=== PATIENT | female | born 1975 | race Caucasian/White ===

== ENCOUNTER 2016-05-07 13:34 | Emergency (ER) | payer OTHER ==
[~2016-05-07] VITALS: Ht 157.5 cm; Wt 86.0 kg
[~2016-05-07 13:34] MED LIST: ALPR.25 PO; LEXA20TA PO; PENI500T PO
[2016-05-07 13:41] VITALS: BP 136/85; PULSE 75; RESP 16; TEMP 97.9; O2SAT 98
[2016-05-07] MEDS ORDERED: LEXA20TA PO (13:56)
[2016-05-07] MEDS ORDERED: ALPR0.5T3 PO (13:56)
[2016-05-07] MEDS ORDERED: KETOROLAC TROMETHAMINE 30 MG/ML (IVP) VIAL IV PUSH ONE (15:00)
[2016-05-07] MEDS ORDERED: SODIUM CHLOR 0.9% 1000 ML INJ 1,000 ML IV ONE (15:00)
[2016-05-07] MEDS ORDERED: diphenhydrAMINE HCL 50 MG/ML VIAL IV PUSH ONE (15:00)
[2016-05-07] MEDS ORDERED: PROCHLORPERAZINE INJ 10 MG/2 ML VIAL IV PUSH ONE (15:00)
[2016-05-07 15:29] VITALS: BP 119/54; PULSE 109; RESP 20; O2SAT 98
--- NOTE | 2016-05-07 15:45 | PD ---
HPI Chief Complaint: Headache Time Seen by Provider: 14:36 Travel History International Travel<30 days: No Contact w/Intl Traveler<30days: No Traveled to known affect area: No History of Present Illness HPI 40-year-old female complains of headache. Patient states that headache started this morning. Patient states the headache as sudden headache started in the front with radiation to the back the head. Patient states that she had nausea and photophobia with the headache. Patient denies any visual change. Patient denies any neck stiffness. Patient denies any chest pain or shortness of breath. Patient denies abdominal pain. Patient denies any focal weakness or numbness of the extremity. Patient denies any recent head injury. Patient has history migraine in the past. Patient states the headache today is more sudden onset and worse than previous migraine headache. Patient denies any fever chills. PFSH Past Medical History Anxiety: Yes Depression: Yes Kidney Stones: Yes Migraines: Yes ?: Not Ovarian Cysts: Yes Past Surgical History Cholecystectomy: Yes Genitourinary Surgery: Yes (LITHOTRIPSY) Gynecologic Surgery: Yes (OOPHRECTOMY LFT) Hysterectomy: Yes Other Surgery: Yes (DISLOCATED PATELLA 2011, ULNAR NERVE RELEASE 2000) Social History Alcohol Use: Yes (OCC) Tobacco Use: No Substance Use: No Allergies-Medications (Allergen,Severity, Reaction): Coded Allergies: No Known Allergies (Unverified , 05/07/16) Reported Meds & Prescriptions Reported Meds & Active Scripts Active Augmentin (Amoxicillin-Clavulanate) 875-125 mg Tab 875 Mg PO BID not for use in CrCl <30 ml/min. Zofran Odt (Ondansetron Odt) 4 Mg Tab 4 Mg SL Q6HR PRN Fioricet (Ltatsjvwgq-Ucbzreqerylze-Akqhzvmd) 50-300-40 Mg Cap 1-2 Cap PO Q6H PRN Reported Alprazolam 0.5 Mg Tab 0.5 Mg PO Q4H PRN Lexapro (Escitalopram Oxalate) 20 Mg Tab 20 Mg PO DAILY Review of Systems General / Constitutional: No: Fever Eyes: Positive: Photophobia, No: Visual changes HENT: Positive: Headaches Cardiovascular: No: Chest Pain or Discomfort Respiratory: No: Shortness of Breath Gastrointestinal: Positive: Nausea, No: Abdominal Pain Genitourinary: No: Dysuria Musculoskeletal: No: Pain Skin: No Rash Neurologic: No: Weakness Psychiatric: No: Depression Endocrine: No: Polydipsia Hematologic/Lymphatic: No: Easy Bruising Physical Exam Narrative GENERAL: Well-nourished, well-developed patient. SKIN: Focused skin assessment warm/dry. HEAD: Normocephalic. EYES: No scleral icterus. No injection or drainage. Pupils 3 mm equal reactive. Patient has photophobia. NECK: Supple, trachea midline. No JVD or lymphadenopathy. No meningismus CARDIOVASCULAR: Regular rate and rhythm without murmurs, gallops, or rubs. RESPIRATORY: Breath sounds equal bilaterally. No accessory muscle use. GASTROINTESTINAL: Abdomen soft, non-tender, nondistended. MUSCULOSKELETAL: No cyanosis, or edema. BACK: Nontender without obvious deformity. No CVA tenderness. Neurologic exam: Patient's awake and alert oriented 3. No obvious focal neurological deficit. Data Data Last Documented VS Vital Signs Date Time Temp Pulse Resp B/P Pulse Ox O2 Delivery O2 Flow Rate FiO2 05/07/16 15:29 109 20 119/54 98 05/07/16 13:41 97.9 Orders Sodium Chlor 0.9% 1000 Ml Inj (Ns 1000 M (05/07/16 15:00) Ketorolac Inj (Toradol Inj) (05/07/16 15:00) Prochlorperazine Inj (Compazine Inj) (05/07/16 15:00) Diphenhydramine Inj (Benadryl Inj) (05/07/16 15:00) Ct Brain W/O Iv Contrast(Rout) (05/07/16 15:36) MDM Medical Decision Making Medical Screen Exam Complete: Yes Emergency Medical Condition: Yes Interpretation(s) [address] scan of brain shows mild ethmoid sinusitis. Differential Diagnosis Differential diagnosis including migraine headache, tension headache, cluster headache, intracranial hemorrhage. Narrative Course 40-year-old female with headache, photophobia and nausea. History of migraine. Toradol 30 mg IV. Compazine 10 mg IV. Phenergan 50 mg IV. Normal saline solution 1 L IV bolus. Diagnosis Primary Impression: Cephalgia Qualified Code: R51 - Nonintractable episodic headache, unspecified headache type Additional Impression: Sinusitis Qualified Code: J01.20 - Acute non-recurrent ethmoidal sinusitis Additional Instructions: Take medications as directed. Follow-up with personal physician and neurologist. Return if worse. Med/Other Pt SpecificInfo: Prescription(s) given Scripts Amoxicillin-Clavulanate (Augmentin)875-125 mg [id number] Mg PO BID #20 TAB Ref 0 not for use in CrCl <30 ml/min. Prov:Gutierrez Handley MD 05/07/16 Ondansetron Odt (Zofran Odt)4 Mg Tab4 Mg SL Q6HR PRN (Nausea/Vomiting) #10 TAB Ref 0 Prov:Gutierrez Hnadley MD 05/07/16 Hwdywwnucj-Czmonrkpsuvdf-Tjwpmarw (Fioricet)50-300-40 Mg Cap1-2 Cap PO Q6H PRN ( HEADACHE) #30 CAP Ref 0 Prov:Gutierrez Handley MD 05/07/16 Disposition: 01 DISCHARGE HOME Condition: Stable Gutierrez Handley MD May 07, 2016 15:45
--- NOTE | 2016-05-07 16:19 | RADHPO ---
EXAM DATE/TIME: 05/07/2016 15:58 [facility] COMPARISON: No previous studies available for comparison. INDICATIONS : Cephalgia. Nausea. RADIATION DOSE: 61.53 CTDIvol (mGy) MEDICAL HISTORY : None SURGICAL HISTORY : None. ENCOUNTER: Initial ACUITY: 1 day PAIN SCALE: 8/10 LOCATION: cranial TECHNIQUE: Multiple contiguous axial images were obtained of the head. Using automated exposure control and adj ustment of the mA and/or kV according to patient size, radiation dose was kept as low as reasonably a chievable to obtain optimal diagnostic quality images. FINDINGS: CEREBRUM: The ventricles are normal for age. No evidence of midline shift, mass lesion, hemorrhage or acute in farction. No extra-axial fluid collections are seen. POSTERIOR FOSSA: The cerebellum and brainstem are intact. The 4th ventricle is midline. The cerebellopontine angle i s unremarkable. EXTRACRANIAL: Mild partial opacification of the right-sided ethmoid sinus. SKULL: The calvaria is intact. No evidence of skull fracture. CONCLUSION: Mild right ethmoid sinus. No acute intracranial findings. Joel Krishna MD on May 07, 2016 at 16:14 Board Certified Radiologist. This report was verified electronically.
[2016-05-07] MEDS ORDERED: BUTA1CAP PO (16:22)
[2016-05-07] MEDS ORDERED: AUGM875T PO (16:22)
[2016-05-07] MEDS ORDERED: ZOFR4TAB3 SL (16:22)
== END 2016-05-07 16:34 | disposition home or self-care (01) ==
LOC: PHED 13:34
DX: R51 Headache (principal); J01.20 Acute ethmoidal sinusitis, unspecified
CPT/HCPCS: 70450; 96374; 96375; 99284; J0780; J1200; J1885; J7030

== ENCOUNTER 2016-05-24 17:55 | Emergency (ER) | payer OTHER ==
[~2016-05-24] VITALS: Ht 157.5 cm; Wt 84.0 kg
[~2016-05-24 17:55] MED LIST changes: -ALPR.25 PO; +ALPR0.5T3 PO; +AUGM875T PO; +BUTA1CAP PO; -PENI500T PO; +ZOFR4TAB3 SL
[2016-05-24 18:04] VITALS: BP 155/79; PULSE 85; RESP 18; TEMP 98; O2SAT 98
[2016-05-24] MEDS ORDERED: IMIT50TA PO (18:04)
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
[2016-05-24] MEDS ORDERED: IBUP800T23 PO (18:24)
[2016-05-24] MEDS ORDERED: HYDR-3533 PO (18:24)
[2016-05-24] MEDS ORDERED: SILV1CRE20 TOPICAL (18:24)
[2016-05-24] MEDS ORDERED: IBUPROFEN 800 MG TAB PO ONE (18:30)
[2016-05-24] MEDS ORDERED: SILVER SULFADIAZINE 1% CR 50 GM JAR TOPICAL ONE (18:30)
== END 2016-05-24 18:48 | disposition home or self-care (01) ==
LOC: PHEFT 17:55
DX: T21.22XA Burn of second degree of abdominal wall, initial encounter (principal); T31.0 Burns involving less than 10% of body surface; Z87.442 Personal history of urinary calculi; X12.XXXA Contact with other hot fluids, initial encounter; Y93.G3 Activity, cooking and baking; Y92.000 Kitchen of unspecified non-institutional (private) residence as the place of occurrence of the external cause; Y99.8 Other external cause status
CPT/HCPCS: 99283

== ENCOUNTER 2017-07-06 10:48 | Emergency (ER) | payer OTHER ==
[~2017-07-06] VITALS: Ht 157.5 cm; Wt 87.0 kg
[~2017-07-06 10:48] MED LIST changes: -AUGM875T PO; +HYDR-3533 PO; +IBUP1TAB7 PO; +IMIT50TA PO; +SILV1CRE20 TOPICAL; -ZOFR4TAB3 SL
[2017-07-06 10:55] VITALS: BP 159/91; PULSE 72; RESP 18; TEMP 97.9; O2SAT 98
--- NOTE | 2017-07-06 11:12 | PD ---
HPI Chief Complaint: Headache Time Seen by Provider: 11:02 Travel History International Travel<30 days: No Contact w/Intl Traveler<30days: No Traveled to known affect area: No History of Present Illness HPI This 41-year-old female is complaining of headache. She has been having a diffuse throbbing headache since yesterday. She has a history of migraine headaches. She has had nausea and vomiting. She does not have any numbness or tingling. In the past Fioricet has been helpful for her but she has been unable to get it recently. She took some ibuprofen this morning but vomited soon after. She has had persistent vomiting. She is not aware of fever. PFSH Past Medical History Anxiety: Yes Depression: Yes Diminished Hearing: No Kidney Stones: Yes Immunizations Current: Yes Migraines: Yes Influenza Vaccination: No ?: Not Ovarian Cysts: Yes Past Surgical History Cholecystectomy: Yes Genitourinary Surgery: Yes (LITHOTRIPSY) Gynecologic Surgery: Yes (OOPHRECTOMY LFT) Hysterectomy: Yes Other Surgery: Yes (DISLOCATED PATELLA 2011, ULNAR NERVE RELEASE 2000) Social History Alcohol Use: Yes (OCC) Tobacco Use: No Substance Use: No Allergies-Medications (Allergen,Severity, Reaction): Coded Allergies: No Known Allergies (Verified Adverse Reaction, Unknown, 07/06/17) Reported Meds & Prescriptions Reported Meds & Active Scripts Active Fioricet (Vllnboncdy-Btwptrksexjga-Likyfwih) 50-300-40 Mg Cap 1-2 Cap PO Q6H PRN Reported Alprazolam 0.5 Mg Tab 0.5 Mg PO Q4H PRN Lexapro (Escitalopram Oxalate) 20 Mg Tab 20 Mg PO DAILY Review of Systems General / Constitutional: No: Fever, Chills Eyes: No: Diploplia, Blurred Vision HENT: Positive: Headaches Cardiovascular: No: Chest Pain or Discomfort, Palpitations Respiratory: No: Cough, Shortness of Breath Gastrointestinal: Positive: Nausea, Vomiting Genitourinary: No: Urgency, Frequency Musculoskeletal: No: Myalgias Skin: No Rash Neurologic: Positive: Headache, No: Syncope, Change in Mentation Psychiatric: No: Anxiety, Depression Hematologic/Lymphatic: No: Easy Bruising Physical Exam Narrative GENERAL: Well-developed female SKIN: Focused skin assessment warm/dry. HEAD: Atraumatic. Normocephalic. EYES: Pupils equal and round. No scleral icterus. No injection or drainage. ENT: No nasal bleeding or discharge. Mucous membranes pink and moist. NECK: Trachea midline. No JVD. CARDIOVASCULAR: Regular rate and rhythm. No murmur appreciated. RESPIRATORY: No accessory muscle use. Clear to auscultation. Breath sounds equal bilaterally. GASTROINTESTINAL: Abdomen soft, non-tender, nondistended. Hepatic and splenic margins not palpable. MUSCULOSKELETAL: No obvious deformities. No clubbing. No cyanosis. No edema. NEUROLOGICAL: Awake and alert. No obvious cranial nerve deficits. Motor grossly within normal limits. Normal speech. PSYCHIATRIC: Appropriate mood and affect; insight and judgment normal. Data Data Last Documented VS Vital Signs Date Time Temp Pulse Resp B/P (MAP) Pulse Ox O2 Delivery O2 Flow Rate FiO2 07/06/17 10:55 97.9 72 18 159/91 (113) 98 Orders Orders Complete Blood Count With Diff (07/06/17 11:07) Basic Metabolic Panel (Bmp) (07/06/17 11:07) Sodium Chlor 0.9% 1000 Ml Inj (Ns 1000 M (07/06/17 11:15) Prochlorperazine Inj (Compazine Inj) (07/06/17 11:15) Ketorolac Inj (Toradol Inj) (07/06/17 11:15) Diphenhydramine Inj (Benadryl Inj) (07/06/17 12:15) Labs Laboratory Tests Test 07/06/17 11:30 White Blood Count 9.5 TH/MM3 Red Blood Count 4.28 MIL/MM3 Hemoglobin 12.6 GM/DL Hematocrit 37.3 % Mean Corpuscular Volume 87.0 FL Mean Corpuscular Hemoglobin 29.4 PG Mean Corpuscular Hemoglobin Concent 33.8 % Red Cell Distribution Width 12.5 % Platelet Count 190 TH/MM3 Mean Platelet Volume 7.7 FL Neutrophils (%) (Auto) 83.7 % Lymphocytes (%) (Auto) 11.6 % Monocytes (%) (Auto) 3.1 % Eosinophils (%) (Auto) 0.6 % Basophils (%) (Auto) 1.0 % Neutrophils # (Auto) 7.9 TH/MM3 Lymphocytes # (Auto) 1.1 TH/MM3 Monocytes # (Auto) 0.3 TH/MM3 Eosinophils # (Auto) 0.1 TH/MM3 Basophils # (Auto) 0.1 TH/MM3 CBC Comment DIFF FINAL Differential Comment Blood Urea Nitrogen 15 MG/DL Creatinine 0.58 MG/DL Random Glucose 119 MG/DL Calcium Level 8.6 MG/DL Sodium Level 139 MEQ/L Potassium Level 4.1 MEQ/L Chloride Level 108 MEQ/L Carbon Dioxide Level 24.7 MEQ/L Anion Gap 6 MEQ/L Estimat Glomerular Filtration Rate 115 ML/MIN MDM Medical Decision Making Medical Screen Exam Complete: Yes Emergency Medical Condition: Yes Medical Record Reviewed: Yes Differential Diagnosis Differential includes migraine headache, tension headache Narrative Course Patient has history of migraines and this is typical of a migraine headache. She has been given intravenous Compazine and Toradol and reports much improvement in the headache. She is complaining of feeling restless and jittery which I believe represents akathisia from the Compazine. She will be given Benadryl and she will be released. Diagnosis Primary Impression: Migraine headache Scripts Qsfqhonhcc-Xqawdzqgmungc-Vcvuvpgk (Fioricet) 50-300-40 Mg Cap 1 CAP PO Q4H Y for HEADACHE, #30 CAP 0 Refills Prov: Cody Maxwell MD 07/06/17 Disposition: DISCHARGE HOME Condition: Stable Cody Maxwell MD July 06, 2017 11:11
[2017-07-06] MEDS ORDERED: SODIUM CHLOR 0.9% 1000 ML INJ 1,000 ML IV ONE (11:15)
[2017-07-06] MEDS ORDERED: KETOROLAC TROMETHAMINE 30 MG/ML (IVP) VIAL IV PUSH ONE (11:15)
[2017-07-06] MEDS ORDERED: PROCHLORPERAZINE INJ 10 MG/2 ML VIAL IV PUSH ONE (11:15)
[2017-07-06 11:38] LABS: AUTOMATED NEUTROPHIL # 7.9 TH/MM3 (1.8-7.7); BASOPHIL # 0.1 TH/MM3 (0-0.2); EOSINOPHIL # 0.1 TH/MM3 (0-0.4); EOSINOPHIL % 0.6 % (0.0-4.0); HEMATOCRIT 37.3 % (35.0-46.0); HEMOGLOBIN 12.6 GM/DL (11.6-15.3); LYMPH % 11.6 % (9.0-44.0); LYMPHOCYTE # 1.1 TH/MM3 (1.0-4.8); MEAN CORPUSCULAR HEMOGLOBIN 29.4 PG (27.0-34.0); MEAN CORPUSCULAR HGB CONC 33.8 % (32.0-36.0); MEAN PLATELET VOLUME 7.7 FL (7.0-11.0); MONO % 3.1 % (0.0-8.0); MONOCYTE # 0.3 TH/MM3 (0-0.9); NEUT % 83.7 % (16.0-70.0); PLATELET COUNT 190 TH/MM3 (150-450); RED BLOOD COUNT 4.28 MIL/MM3 (4.00-5.30); RED CELL DISTRIBUTION WIDTH 12.5 % (11.6-17.2); WHITE BLOOD COUNT 9.5 TH/MM3 (4.0-11.0)
[2017-07-06 11:48] LABS: CALCIUM 8.6 MG/DL (8.5-10.1)
[2017-07-06 11:49] LABS: BICARBONATE 24.7 MEQ/L (21.0-32.0)
[2017-07-06 11:52] LABS: CREATININE 0.58 MG/DL (0.50-1.00)
[2017-07-06] MEDS ORDERED: BUTA1CAP PO (12:05)
[2017-07-06 12:13] VITALS: BP 118/72; PULSE 69; RESP 16; O2SAT 99
[2017-07-06] MEDS ORDERED: diphenhydrAMINE HCL 50 MG/ML VIAL IV PUSH ONE (12:15)
[2017-07-06 12:35] VITALS: BP 125/81; PULSE 76; RESP 16; O2SAT 100
== END 2017-07-06 12:50 | disposition home or self-care (01) ==
LOC: PHED 10:48
DX: G43.909 Migraine, unspecified, not intractable, without status migrainosus (principal); G25.71 Drug induced akathisia; R11.2 Nausea with vomiting, unspecified; F41.9 Anxiety disorder, unspecified; F32.9 Major depressive disorder, single episode, unspecified; Z87.442 Personal history of urinary calculi; Z79.899 Other long term (current) drug therapy
CPT/HCPCS: 80048; 85025; 96361; 96374; 96375; 99284; J0780; J1200; J1885; J7030

== ENCOUNTER 2017-07-08 10:58 | Emergency (ER) | payer OTHER ==
[~2017-07-08] VITALS: Ht 157.5 cm; Wt 87.0 kg
[~2017-07-08 10:58] MED LIST changes: -HYDR-3533 PO; -IBUP1TAB7 PO; -IMIT50TA PO; -SILV1CRE20 TOPICAL
[2017-07-08 11:05] VITALS: BP 103/75; PULSE 78; RESP 18; TEMP 97.5; O2SAT 98
--- NOTE | 2017-07-08 11:18 | PD ---
HPI Chief Complaint: Headache Time Seen by Provider: 11:16 Travel History International Travel<30 days: No Contact w/Intl Traveler<30days: No Traveled to known affect area: No History of Present Illness HPI Patient comes in complaining of 1 hour period of migraine, she tried to take her home migraine medications which did not seem to help. So she is here for breakthrough pain control. Patient states that she has a neurologist, and she had a CAT scan in 2017 of her head which was negative. Patient states that his headaches are associated with nausea and vomiting but without diarrhea. Patient denies any alleviating or aggravating factors. Patient denies any associated factors such as fever, rash, neck pain, chest pain, back pain, flank pain or abdominal pain. States no known drug allergy Past medical history significant for cholecystectomy, ovarian cyst, hysterectomy , kidney stones, depression, anxiety, migraine history. PFSH Past Medical History Anxiety: Yes Depression: Yes Diminished Hearing: No Kidney Stones: Yes Immunizations Current: Yes Migraines: Yes Ovarian Cysts: Yes Past Surgical History Cholecystectomy: Yes Genitourinary Surgery: Yes (LITHOTRIPSY) Gynecologic Surgery: Yes (OOPHRECTOMY LFT) Hysterectomy: Yes Other Surgery: Yes (DISLOCATED PATELLA 2011, ULNAR NERVE RELEASE 2000) Social History Alcohol Use: Yes (OCC) Tobacco Use: No Substance Use: No Allergies-Medications (Allergen,Severity, Reaction): Coded Allergies: No Known Allergies (Verified Adverse Reaction, Unknown, 07/08/17) Reported Meds & Prescriptions Reported Meds & Active Scripts Active Fioricet (Xxfmoileoz-Auomuoblnnqnl-Fbviakbc) 50-300-40 Mg Cap 1-2 Cap PO Q6H PRN Reported Alprazolam 0.5 Mg Tab 0.5 Mg PO Q4H PRN Lexapro (Escitalopram Oxalate) 20 Mg Tab 30 Mg PO DAILY Review of Systems General / Constitutional: No: Fever Eyes: No: Visual changes HENT: Positive: Headaches Cardiovascular: No: Chest Pain or Discomfort Respiratory: No: Shortness of Breath Gastrointestinal: Positive: Nausea, No: Abdominal Pain Genitourinary: No: Dysuria Musculoskeletal: No: Pain Skin: No Rash Neurologic: No: Weakness Psychiatric: No: Depression Endocrine: No: Polydipsia Hematologic/Lymphatic: No: Easy Bruising Physical Exam Narrative GENERAL: Afebrile SKIN: Warm and dry. No rash HEAD: Atraumatic. Normocephalic. EYES: Pupils equal and round. No scleral icterus. No injection or drainage. Mild photophobia ENT: No nasal bleeding or discharge. Mucous membranes pink and moist. NECK: Trachea midline. No JVD. No nuchal rigidity, negative Brudzinski's and Kernig sign CARDIOVASCULAR: Regular rate and rhythm. RESPIRATORY: No accessory muscle use. Clear to auscultation. Breath sounds equal bilaterally. GASTROINTESTINAL: Abdomen soft, non-tender, nondistended. MUSCULOSKELETAL: Extremities without clubbing, cyanosis, or edema. No obvious deformities. NEUROLOGICAL: Awake and alert. No obvious cranial nerve deficits. Motor grossly within normal limits. Five out of 5 muscle strength in the arms and legs. Normal speech. PSYCHIATRIC: Appropriate mood and affect; insight and judgment normal. Data Data Last Documented VS Vital Signs Date Time Temp Pulse Resp B/P (MAP) Pulse Ox O2 Delivery O2 Flow Rate FiO2 07/08/17 11:30 99 Room Air 07/08/17 11:05 97.5 78 18 103/75 (84) Orders Orders Ecg Monitoring (07/08/17 11:18) Iv Access Insert/Monitor (07/08/17 11:18) Oximetry (07/08/17 11:18) Oxygen Administration (07/08/17 11:18) Sodium Chloride 0.9% Flush (Ns Flush) (07/08/17 11:30) Ketorolac Inj (Toradol Inj) (07/08/17 11:30) Prochlorperazine Inj (Compazine Inj) (07/08/17 11:30) Diphenhydramine Inj (Benadryl Inj) (07/08/17 11:30) MDM Medical Decision Making Medical Screen Exam Complete: Yes Emergency Medical Condition: Yes Medical Record Reviewed: Yes Differential Diagnosis Migraine headache Narrative Course Patient was seen on 06 July for the same, was treated with Toradol Compazine and Benadryl and discharged home on Fioricet. No additional pain medication will be given as the patient was given 30 tablets of Fioricet the last time she was seen here 2 days ago. Patient had resolution of headache after provided with the above cocktail of Toradol, Compazine and Benadryl. Diagnosis Primary Impression: Cephalgia Qualified Codes: R51 - Headache Patient Instructions: Acute Headache (ED), General Instructions Scripts Ondansetron Odt (Zofran Odt) 4 Mg Tab 4 MG SL Q6HR Y for Nausea/Vomiting, #20 TAB 0 Refills Prov: Mejia Lehman MD 07/08/17 Disposition: 01 DISCHARGE HOME Condition: Stable Mejia Lehman MD July 08, 2017 11:18
[2017-07-08] MEDS ORDERED: SODIUM CHLORIDE 0.9% FLUSH 10 ML FLUSH IVF PRN (11:30)
[2017-07-08] MEDS ORDERED: PROCHLORPERAZINE INJ 10 MG/2 ML VIAL IVP ONE (11:30)
[2017-07-08] MEDS ORDERED: KETOROLAC TROMETHAMINE 30 MG/ML (IVP) VIAL IVP ONE (11:30)
[2017-07-08] MEDS ORDERED: diphenhydrAMINE HCL 50 MG/ML VIAL IVP ONE (11:30)
[2017-07-08] MEDS ORDERED: ZOFR4TAB3 SL (12:03)
[2017-07-08 12:04] VITALS: BP 134/87; PULSE 86; RESP 16; O2SAT 99
== END 2017-07-08 12:26 | disposition home or self-care (01) ==
LOC: PHED 10:58
DX: R51 Headache (principal); F32.9 Major depressive disorder, single episode, unspecified; F41.9 Anxiety disorder, unspecified
CPT/HCPCS: 96374; 96375; 99284; J0780; J1200; J1885

== ENCOUNTER 2017-07-11 22:16 | Emergency (ER) | payer OTHER ==
[~2017-07-11] VITALS: Ht 157.5 cm; Wt 86.0 kg
[~2017-07-11 22:16] MED LIST changes: +ZOFR4TAB3 SL
[2017-07-11 22:20] VITALS: BP 130/77; PULSE 96; RESP 18; TEMP 98.4; O2SAT 97
[2017-07-11 22:37] VITALS: BP 153/91; PULSE 85; RESP 18; O2SAT 97
[2017-07-11] MEDS ORDERED: PROM25TA10 PO (22:43)
[2017-07-11] MEDS ORDERED: SODIUM CHLOR 0.9% 1000 ML INJ 1,000 ML IV ONE (23:17)
[2017-07-11] MEDS ORDERED: PROCHLORPERAZINE INJ 10 MG/2 ML VIAL IVP ONE (23:30)
[2017-07-11] MEDS ORDERED: diphenhydrAMINE HCL 50 MG/ML VIAL IVP ONE (23:30)
[2017-07-11 23:45] VITALS: BP 113/67; PULSE 88; RESP 18; O2SAT 98
--- NOTE | 2017-07-11 23:55 | PD ---
HPI Chief Complaint: Headache Time Seen by Provider: 23:17 Travel History International Travel<30 days: No Contact w/Intl Traveler<30days: No Traveled to known affect area: No History of Present Illness HPI 41-year-old female with history of migraine presents to the emergency department with headache 5 days. This is her third visit to the emergency department. Patient states headache is persistent and unremitting. Patient states headache is associated with pain to the right posterior neck right tenriism intermittently she feels tingling and weakness in her right upper extremity and right lower extremity. Patient also has her typical photophobia, phonophobia, and nausea. Patient states she was seen 07/06/17 and 07/08/17 for same but did not have any imaging studies or lab work performed and was administered medication with good symptom relief and discharged. However upon resolution of medication affect symptoms have returned. No reported neck or head manipulation or injury. No recent febrile illness. No speech disturbance no visual loss and no change in mentation or ataxia. Patient rates her pain 7/ 10 in intensity. No known exacerbating or relieving factors (except medications provided at the prior the ED visits). PFSH Past Medical History Anxiety: Yes Depression: Yes Diminished Hearing: No Kidney Stones: Yes Immunizations Current: Yes Migraines: Yes Influenza Vaccination: No ?: Not Ovarian Cysts: Yes Past Surgical History Cholecystectomy: Yes Genitourinary Surgery: Yes (LITHOTRIPSY) Gynecologic Surgery: Yes (OOPHRECTOMY LFT) Hysterectomy: Yes Other Surgery: Yes (DISLOCATED PATELLA 2011, ULNAR NERVE RELEASE 2000) Social History Alcohol Use: Yes (OCC) Tobacco Use: No Substance Use: No Allergies-Medications (Allergen,Severity, Reaction): Coded Allergies: No Known Allergies (Verified Adverse Reaction, Unknown, 07/11/17) Reported Meds & Prescriptions Reported Meds & Active Scripts Active Zofran Odt (Ondansetron Odt) 4 Mg Tab 4 Mg SL Q6HR PRN Fioricet (Cirpdojevj-Gxjgejoqlrlmg-Mjhxwjjt) 50-300-40 Mg Cap 1-2 Cap PO Q6H PRN Reported Phenergan (Promethazine HCl) 25 Mg Tablet 25 Mg PO ONCE Alprazolam 0.5 Mg Tab 0.5 Mg PO Q4H PRN Lexapro (Escitalopram Oxalate) 20 Mg Tab 30 Mg PO DAILY Physical Exam Narrative GENERAL: Well-developed well-nourished female no acute distress no respiratory distress; GCS 15 SKIN: Warm and dry. HEAD: Atraumatic. Normocephalic. EYES: Pupils equal and round and reactive to light. Extraocular muscles intact. No scleral icterus. No injection or drainage. No papilledema by funduscopic exam. ENT: No nasal bleeding or discharge. Mucous membranes pink and moist. Airway is patent. NECK: Trachea midline. No JVD. Supple no meningismus. CARDIOVASCULAR: Regular rate and rhythm. RESPIRATORY: No accessory muscle use. Clear to auscultation. Breath sounds equal bilaterally. GASTROINTESTINAL: Abdomen soft, non-tender, nondistended. Hepatic and splenic margins not palpable. MUSCULOSKELETAL: Extremities without clubbing, cyanosis, or edema. No obvious deformities. NEUROLOGICAL: Awake and alert. GCS 15 no obvious cranial nerve deficits. Motor grossly within normal limits. Five out of 5 muscle strength in the arms and legs. No limb ataxia. No pronator drift. Normal speech. PSYCHIATRIC: Appropriate mood and affect; insight and judgment normal. Data Data Last Documented VS Vital Signs Date Time Temp Pulse Resp B/P (MAP) Pulse Ox O2 Delivery O2 Flow Rate FiO2 07/12/17 02:16 84 16 107/70 (82) 98 Room Air 07/11/17 22:20 98.4 Orders Orders Complete Blood Count With Diff (07/11/17 23:17) Basic Metabolic Panel (Bmp) (07/11/17 23:17) Westergren Sedimentation Rate (07/11/17 23:17) Prothrombin Time / Inr (Pt) (07/11/17 23:17) Act Partial Throm Time (Ptt) (07/11/17 23:17) Ecg Monitoring (07/11/17 23:17) Iv Access Insert/Monitor (07/11/17 23:17) Oximetry (07/11/17 23:17) Sodium Chloride 0.9% Flush (Ns Flush) (07/11/17 23:30) Prochlorperazine Inj (Compazine Inj) (07/11/17 23:30) Diphenhydramine Inj (Benadryl Inj) (07/11/17 23:30) Sodium Chlor 0.9% 1000 Ml Inj (Ns 1000 M (07/11/17 23:17) Ed Urine Pregnancytest Poc (07/11/17 23:17) Diphenhydramine Inj (Benadryl Inj) (07/12/17 00:45) Ct Brain W/O Iv Contrast(Rout) (07/12/17 23:17) Ketorolac Inj (Toradol Inj) (07/12/17 02:15) Labs Laboratory Tests Test 07/12/17 00:00 White Blood Count 7.4 TH/MM3 Red Blood Count 4.09 MIL/MM3 Hemoglobin 12.1 GM/DL Hematocrit 35.6 % Mean Corpuscular Volume 87.2 FL Mean Corpuscular Hemoglobin 29.6 PG Mean Corpuscular Hemoglobin Concent 34.0 % Red Cell Distribution Width 12.9 % Platelet Count 192 TH/MM3 Mean Platelet Volume 7.7 FL Neutrophils (%) (Auto) 65.2 % Lymphocytes (%) (Auto) 27.7 % Monocytes (%) (Auto) 5.2 % Eosinophils (%) (Auto) 1.3 % Basophils (%) (Auto) 0.6 % Neutrophils # (Auto) 4.8 TH/MM3 Lymphocytes # (Auto) 2.1 TH/MM3 Monocytes # (Auto) 0.4 TH/MM3 Eosinophils # (Auto) 0.1 TH/MM3 Basophils # (Auto) 0.0 TH/MM3 CBC Comment DIFF FINAL Differential Comment Erythrocyte Sedimentation Rate 32 mm/hr Prothrombin Time 9.8 SEC Prothromb Time International Ratio 1.0 RATIO Activated Partial Thromboplast Time 25.6 SEC Blood Urea Nitrogen 20 MG/DL Creatinine 0.76 MG/DL Random Glucose 141 MG/DL Calcium Level 8.7 MG/DL Sodium Level 138 MEQ/L Potassium Level 3.3 MEQ/L Chloride Level 107 MEQ/L Carbon Dioxide Level 23.4 MEQ/L Anion Gap 8 MEQ/L Estimat Glomerular Filtration Rate 84 ML/MIN [facility] Medical Decision Making Medical Screen Exam Complete: Yes Emergency Medical Condition: Yes Medical Record Reviewed: Yes (last CT 2016) Differential Diagnosis Migraine, migraine variant, tension headache, ICH, SAH, TIA, vertebral dissection, sinusitis; unlikely giant cell arteritis, venous sinus thrombosis Narrative Course IV access obtained specimens collected and sent for resulting imaging study ordered @ 2:19 reports she feels markedly improved has fioricet and phenergan at home and referral for neurologist from PCP; ready to go home; added dose of toradol prior to discharge to home. Diagnosis Primary Impression: Cephalgia Additional Impression: H/O migraine Referrals: Neurologist call for appointment [employer] neurologist: Dr Hernandez Primary Care Physician 1 day Patient Instructions: General Instructions Departure Forms: Tests/Procedures, Work Release Special Instructions: no work x 1 day; may return to work 07/13/17 Additional Instructions: Rest Increase fluid hydration Take your previously prescribed Fioricet/Phenergan medications as prescribed as needed Monitor temperature for fever take acetaminophen/Tylenol every 4 hours as needed for fever 100.4F or greater take ibuprofen 800 mg as often as every 8 hours as needed for pain associated with inflammation Return to the emergency department for any concerns or change in condition Follow-up with your primary care provider and neurology as planned Med/Other Pt SpecificInfo: Prescription(s) given Scripts Ibuprofen (Ibuprofen) 800 Mg Tab 800 MG PO Q8H Y for PAIN GREATER THAN 5, #10 TAB 0 Refills Prov: Neha Hamlin MD 07/12/17 Disposition: 01 DISCHARGE HOME Condition: Stable Neha Hamlin MD Jul 11, 2017 23:55
[2017-07-12 00:16] LABS: AUTOMATED NEUTROPHIL # 4.8 TH/MM3 (1.8-7.7); BASOPHIL % 0.6 % (0.0-2.0); EOSINOPHIL # 0.1 TH/MM3 (0-0.4); EOSINOPHIL % 1.3 % (0.0-4.0); HEMATOCRIT 35.6 % (35.0-46.0); HEMOGLOBIN 12.1 GM/DL (11.6-15.3); LYMPH % 27.7 % (9.0-44.0); LYMPHOCYTE # 2.1 TH/MM3 (1.0-4.8); MEAN CELL VOLUME 87.2 FL (80.0-100.0); MEAN CORPUSCULAR HEMOGLOBIN 29.6 PG (27.0-34.0); MEAN PLATELET VOLUME 7.7 FL (7.0-11.0); MONO % 5.2 % (0.0-8.0); MONOCYTE # 0.4 TH/MM3 (0-0.9); NEUT % 65.2 % (16.0-70.0); PLATELET COUNT 192 TH/MM3 (150-450); RED BLOOD COUNT 4.09 MIL/MM3 (4.00-5.30); RED CELL DISTRIBUTION WIDTH 12.9 % (11.6-17.2); WHITE BLOOD COUNT 7.4 TH/MM3 (4.0-11.0)
[2017-07-12] MEDS: SODIUM CHLORIDE 0.9% FLUSH 10 ML FLUSH IVF PRN ×2 (00:23→02:21)
[2017-07-12 00:25] LABS: CALCIUM 8.7 MG/DL (8.5-10.1)
[2017-07-12 00:26] LABS: BICARBONATE 23.4 MEQ/L (21.0-32.0)
[2017-07-12 00:27] LABS: PROTHROMBIN TIME - PATIENT 9.8 SEC (9.8-11.6)
[2017-07-12 00:29] LABS: CREATININE 0.76 MG/DL (0.50-1.00)
[2017-07-12] MEDS ORDERED: diphenhydrAMINE HCL 50 MG/ML VIAL IV PUSH ONE (00:45)
[2017-07-12 00:48] VITALS: BP 125/82; PULSE 89; RESP 18; O2SAT 97
--- NOTE | 2017-07-12 01:57 | RADRPT ---
EXAM DATE: 07/12/2017 1:54 AM EDT AGE/SEX: 41 years / Female INDICATIONS: Cephalgia. CLINICAL DATA: This is the patient's initial encounter. Patient reports that signs and symptoms have been present for 4 - 6 days and indicates a pain score of 7/10. MEDICAL/SURGICAL HISTORY: None. None. RADIATION DOSE: 51.87 CTDI (mGy) COMPARISON: [facility], CT BRAIN W/O CONTRAST, 05/07/2016. . TECHNIQUE: CT of the head without contrast. Using automated exposure control and adjustment of the mA and/or kV according to patient size, radiation dose was kept as low as reasonably achievable to ob tain optimal diagnostic quality images. FINDINGS: Cerebrum: The ventricles are normal for age. No evidence of midline shift, mass lesion, hemorrhage or acute infarction. No extraaxial fluid collections are seen. Posterior Fossa: The cerebellum and brainstem are intact. The 4th ventricle is midline. The cerebe llopontine angle is unremarkable. Extracranial: The visualized portion of the orbits is intact. Skull: The calvaria is intact. No evidence of skull fracture. CONCLUSION: 1. Unremarkable and stable CT scan of the brain compared to the prior study. Electronically signed by: Percy Colon MD 07/12/2017 1:56 AM EDT
[2017-07-12] MEDS ORDERED: KETOROLAC TROMETHAMINE 30 MG/ML (IVP) VIAL IV PUSH ONE (02:15)
[2017-07-12 02:16] VITALS: BP 107/70; PULSE 84; RESP 16; O2SAT 98
[2017-07-12] MEDS ORDERED: IBUP1TAB7 PO (02:24)
== END 2017-07-12 03:00 | disposition home or self-care (01) ==
LOC: PHED 22:16
DX: R51 Headache (principal); R20.2 Paresthesia of skin; M62.81 Muscle weakness (generalized); H53.149 Visual discomfort, unspecified; R11.0 Nausea; F41.9 Anxiety disorder, unspecified; F32.9 Major depressive disorder, single episode, unspecified; Z87.442 Personal history of urinary calculi; Z79.899 Other long term (current) drug therapy
CPT/HCPCS: 70450; 80048; 84703; 85025; 85610; 85652; 85730; 96361; 96374; 96375; 99284; J0780; J1200; J1885; J7030

== ENCOUNTER 2017-07-13 11:33 | Emergency (ER) | payer OTHER ==
[~2017-07-13] VITALS: Ht 157.5 cm; Wt 84.0 kg
[~2017-07-13 11:33] MED LIST changes: +IBUP1TAB7 PO; +PROM25TA10 PO
[2017-07-13 11:52] VITALS: BP 146/82; PULSE 90; RESP 16; O2SAT 100
--- NOTE | 2017-07-13 11:54 | PD ---
HPI Chief Complaint: Headache Time Seen by Provider: 11:42 Travel History International Travel<30 days: No Contact w/Intl Traveler<30days: No Traveled to known affect area: No History of Present Illness HPI This 41-year-old female is complaining of migraine headache. She says she been having a migraine for over a week. During that time she has been seen in the emergency department and has received treatment. According to the notes the treatment did provide some relief but she says the headache is come right back. She had a CAT scan done on July 12 which was read as negative. She does have a history of migraine headaches and usually gets relief with Phenergan and Fioricet. This headache is been going on since last weekend. There has been vomiting. She does not have any numbness or tingling. There is no fever or chills. PFSH Past Medical History Anxiety: Yes Depression: Yes Diminished Hearing: No Kidney Stones: Yes Immunizations Current: Yes Migraines: Yes Ovarian Cysts: Yes Past Surgical History Cholecystectomy: Yes Genitourinary Surgery: Yes (LITHOTRIPSY) Gynecologic Surgery: Yes (OOPHRECTOMY LFT) Hysterectomy: Yes Other Surgery: Yes (DISLOCATED PATELLA 2011, ULNAR NERVE RELEASE 2000) Social History Alcohol Use: Yes (OCC) Tobacco Use: No Substance Use: No Allergies-Medications (Allergen,Severity, Reaction): Coded Allergies: No Known Allergies (Verified Adverse Reaction, Unknown, 07/11/17) Reported Meds & Prescriptions Reported Meds & Active Scripts Active Fioricet (Qgiwyaacvv-Gabfkpijprgpv-Bxiwxvux) 50-300-40 Mg Cap 1-2 Cap PO Q6H PRN Reported Phenergan (Promethazine HCl) 25 Mg Tablet 25 Mg PO ONCE Alprazolam 0.5 Mg Tab 0.5 Mg PO Q4H PRN Lexapro (Escitalopram Oxalate) 20 Mg Tab 30 Mg PO DAILY Review of Systems Except as stated in HPI: all other systems reviewed are Neg General / Constitutional: No: Fever, Chills Eyes: No: Diploplia, Blurred Vision HENT: Positive: Headaches Cardiovascular: No: Chest Pain or Discomfort, Palpitations Respiratory: No: Cough, Shortness of Breath Gastrointestinal: Positive: Nausea, Vomiting Genitourinary: No: Urgency, Frequency Musculoskeletal: No: Myalgias, Arthralgias Skin: No Rash Neurologic: Positive: Headache Endocrine: No: Heat Intolerance Hematologic/Lymphatic: No: Easy Bruising Physical Exam Narrative GENERAL: Well-developed female SKIN: Focused skin assessment warm/dry. HEAD: Atraumatic. Normocephalic. EYES: Pupils equal and round. No scleral icterus. No injection or drainage. ENT: No nasal bleeding or discharge. Mucous membranes pink and moist. NECK: Trachea midline. No JVD. CARDIOVASCULAR: Regular rate and rhythm. No murmur appreciated. RESPIRATORY: No accessory muscle use. Clear to auscultation. Breath sounds equal bilaterally. GASTROINTESTINAL: Abdomen soft, non-tender, nondistended. Hepatic and splenic margins not palpable. MUSCULOSKELETAL: No obvious deformities. No clubbing. No cyanosis. No edema. NEUROLOGICAL: Awake and alert. No obvious cranial nerve deficits. Motor grossly within normal limits. Normal speech. PSYCHIATRIC: Appropriate mood and affect; insight and judgment normal. Data Data Last Documented VS Vital Signs Date Time Temp Pulse Resp B/P (MAP) Pulse Ox O2 Delivery O2 Flow Rate FiO2 07/13/17 11:52 90 16 146/82 (103) 100 Orders Orders Complete Blood Count With Diff (07/13/17 11:48) Comprehensive Metabolic Panel (07/13/17 11:48) Sodium Chlor 0.9% 1000 Ml Inj (Ns 1000 M (07/13/17 12:00) Prochlorperazine Inj (Compazine Inj) (07/13/17 12:00) Ketorolac Inj (Toradol Inj) (07/13/17 12:00) Diphenhydramine Inj (Benadryl Inj) (07/13/17 12:00) Labs Laboratory Tests Test 07/13/17 12:31 White Blood Count 7.4 TH/MM3 Red Blood Count 4.42 MIL/MM3 Hemoglobin 13.2 GM/DL Hematocrit 39.0 % Mean Corpuscular Volume 88.2 FL Mean Corpuscular Hemoglobin 29.8 PG Mean Corpuscular Hemoglobin Concent 33.8 % Red Cell Distribution Width 13.3 % Platelet Count 197 TH/MM3 Mean Platelet Volume 8.1 FL Neutrophils (%) (Auto) 76.2 % Lymphocytes (%) (Auto) 17.2 % Monocytes (%) (Auto) 5.0 % Eosinophils (%) (Auto) 0.7 % Basophils (%) (Auto) 0.9 % Neutrophils # (Auto) 5.5 TH/MM3 Lymphocytes # (Auto) 1.3 TH/MM3 Monocytes # (Auto) 0.4 TH/MM3 Eosinophils # (Auto) 0.1 TH/MM3 Basophils # (Auto) 0.1 TH/MM3 CBC Comment DIFF FINAL Differential Comment Blood Urea Nitrogen 12 MG/DL Creatinine 0.70 MG/DL Random Glucose 129 MG/DL Total Protein 7.7 GM/DL Albumin 3.9 GM/DL Calcium Level 8.5 MG/DL Alkaline Phosphatase 87 U/L Aspartate Amino Transf (AST/SGOT) 47 U/L Alanine Aminotransferase (ALT/SGPT) 69 U/L Total Bilirubin 0.3 MG/DL Sodium Level 139 MEQ/L Potassium Level 4.1 MEQ/L Chloride Level 108 MEQ/L Carbon Dioxide Level 22.4 MEQ/L Anion Gap 9 MEQ/L Estimat Glomerular Filtration Rate 93 ML/MIN MDM Medical Decision Making Medical Screen Exam Complete: Yes Emergency Medical Condition: Yes Medical Record Reviewed: Yes Differential Diagnosis Differential includes migraine headache, tension headache Narrative Course Patient was given IV fluids Toradol and Compazine and reports improvement in her headache. She has been having ongoing problems are mainly give a single dose of Decadron to see if this will help stop the cycle. Diagnosis Primary Impression: Migraine headache Disposition: DISCHARGE HOME Condition: Stable Cody Maxwell MD Jul 13, 2017 11:54
[2017-07-13] MEDS ORDERED: diphenhydrAMINE HCL 50 MG/ML VIAL IV PUSH ONE (12:00)
[2017-07-13] MEDS ORDERED: KETOROLAC TROMETHAMINE 30 MG/ML (IVP) VIAL IV PUSH ONE (12:00)
[2017-07-13] MEDS ORDERED: SODIUM CHLOR 0.9% 1000 ML INJ 1,000 ML IV ONE (12:00)
[2017-07-13] MEDS ORDERED: PROCHLORPERAZINE INJ 10 MG/2 ML VIAL IV PUSH ONE (12:00)
[2017-07-13 12:40] LABS: AUTOMATED NEUTROPHIL # 5.5 TH/MM3 (1.8-7.7); BASOPHIL # 0.1 TH/MM3 (0-0.2); BASOPHIL % 0.9 % (0.0-2.0); EOSINOPHIL # 0.1 TH/MM3 (0-0.4); EOSINOPHIL % 0.7 % (0.0-4.0); HEMOGLOBIN 13.2 GM/DL (11.6-15.3); LYMPH % 17.2 % (9.0-44.0); LYMPHOCYTE # 1.3 TH/MM3 (1.0-4.8); MEAN CELL VOLUME 88.2 FL (80.0-100.0); MEAN CORPUSCULAR HEMOGLOBIN 29.8 PG (27.0-34.0); MEAN CORPUSCULAR HGB CONC 33.8 % (32.0-36.0); MEAN PLATELET VOLUME 8.1 FL (7.0-11.0); MONOCYTE # 0.4 TH/MM3 (0-0.9); NEUT % 76.2 % (16.0-70.0); PLATELET COUNT 197 TH/MM3 (150-450); RED BLOOD COUNT 4.42 MIL/MM3 (4.00-5.30); RED CELL DISTRIBUTION WIDTH 13.3 % (11.6-17.2); WHITE BLOOD COUNT 7.4 TH/MM3 (4.0-11.0)
[2017-07-13 12:46] LABS: CHLORIDE 108 MEQ/L (98-107); SODIUM (NA) 139 MEQ/L (136-145)
[2017-07-13 12:49] LABS: CALCIUM 8.5 MG/DL (8.5-10.1)
[2017-07-13 12:50] LABS: ALBUMIN 3.9 GM/DL (3.4-5.0); BICARBONATE 22.4 MEQ/L (21.0-32.0); BLOOD UREA NITROGEN 12 MG/DL (7-18); GLUCOSE,RANDOM 129 MG/DL (74-106)
[2017-07-13 12:53] LABS: ALT (GPT) 69 U/L (10-53); AST (GOT) 47 U/L (15-37); GLOMERULAR FILTRATION RATE 93 ML/MIN (>89)
[2017-07-13 12:55] LABS: TOTAL BILIRUBIN ADULT 0.3 MG/DL (0.2-1.0); TOTAL PROTEIN 7.7 GM/DL (6.4-8.2)
[2017-07-13 12:56] LABS: ALKALINE PHOSPHATASE 87 U/L (45-117)
[2017-07-13] MEDS ORDERED: DEXAMETHASONE SOD PHOS 4 MG/ML VIAL IV PUSH ONE (13:15)
[2017-07-13 13:24] VITALS: BP 138/76; PULSE 106; RESP 18; O2SAT 98
[2017-07-13 14:31] VITALS: BP 151/63
== END 2017-07-13 14:33 | disposition home or self-care (01) ==
LOC: PHED 11:33
DX: G43.909 Migraine, unspecified, not intractable, without status migrainosus (principal); R11.2 Nausea with vomiting, unspecified; F41.9 Anxiety disorder, unspecified; F32.9 Major depressive disorder, single episode, unspecified; Z87.442 Personal history of urinary calculi; Z79.899 Other long term (current) drug therapy
CPT/HCPCS: 80053; 85025; 96361; 96374; 96375; 99284; J0780; J1100; J1200; J1885; J7030